=== PATIENT | male | born 1970 | race Hispanic/Latino ===

== ENCOUNTER 2024-03-01 22:25 | Emergency (ER) | payer SELFPAY ==
[2024-03-01] MEDS ORDERED: methylPREDNISolone Sod Succ/PF 125 MG/2 ML VIAL ONE (23:03)
[2024-03-01] MEDS ORDERED: Sodium Chloride 0.9% 1,000 ML ONE (23:03)
[2024-03-01] MEDS ORDERED: diphenhydrAMINE 50 MG/ML VIAL ONE (23:03)
== END 2024-03-01 23:55 | disposition home or self-care (01) ==
LOC: NAV ERS 22:25
DX: R21 Rash and other nonspecific skin eruption (principal)
CPT/HCPCS: 96374; 96375; J1200; J2930; J7050